=== PATIENT | female | born 1995 | race Caucasian/White ===

== ENCOUNTER 2017-11-02 01:09 | Emergency (ER) | payer BC ==
[~2017-11-02] VITALS: Ht 165.1 cm; Wt 59.5 kg
[2017-11-02 01:14] VITALS: TEMP 36.7; Ht 165.1 cm; Wt 59.5 kg
[2017-11-02] MEDS ORDERED: BCPILLS PO (01:41)
[2017-11-02] MEDS ORDERED: FLUO20CA35 PO (01:41)
[2017-11-02] MEDS ORDERED: ONDANSETRON INJ 2 MG/ML 2 ML VIAL IV STA (02:10)
[2017-11-02] MEDS ORDERED: SODIUM CHLORIDE 0.9% 1000ML 1,000 ML IV ONE (02:15)
[2017-11-02] MEDS ORDERED: OPTIRAY 320 IV PRN (02:15)
[2017-11-02 02:24] LABS: BASO % 0.1 %; BASO ABS # 0.01 K/uL (0-0.2); EOS % 8.1 %; EOS ABS # 0.58 K/uL (0-0.5); HEMATOCRIT 37.7 % (37-47); HEMOGLOBIN 12.9 g/dL (12.0-16.0); IG# 0.01 K/uL (0.00-0.02); LYMPH % 39.6 %; LYMPH ABS # 2.82 K/uL (1.2-3.4); MEAN CELL VOLUME 90.4 fL (80-100); MEAN CORPUSCULAR HEMOGLOBIN 30.9 pg (25-34); MEAN CORPUSCULAR HGB CONC 34.2 g/dl (32-36); MEAN PLATELET VOLUME 10.7 fL (7.4-10.4); MONO % 9.4 %; MONO ABS # 0.67 K/uL (0.11-0.59); NEUT % 42.7 %; NEUT ABS # 3.04 K/uL (1.4-6.5); PLATELET COUNT 249 K/uL (130-400); RED CELL DISTRIBUTION WIDTH SD 42.7 fL (36.4-46.3); WHITE BLOOD COUNT 7.13 K/uL (4.8-10.8)
[2017-11-02 02:43] LABS: ALBUMIN 3.5 gm/dl (3.4-5.0); CALCIUM 9.1 mg/dl (8.5-10.1); CREATININE 0.93 mg/dl (0.60-1.20); POTASSIUM 3.8 mmol/L (3.5-5.1)
[2017-11-02 02:46] LABS: TOTAL PROTEIN 6.9 gm/dl (6.4-8.2)
[2017-11-02 03:32] VITALS: BP 120/82
[2017-11-02 05:47] VITALS: PULSE 72; O2SAT 99
--- NOTE | 2017-11-02 06:35 | DIAGNOSTIC IMAGING REPORT ---
ABD/PELVIS IV AND ORAL CONT CT DOSE: 266.65 mGy.cm HISTORY: Pain low abd pain TECHNIQUE: Multiaxial CT images of the abdomen and pelvis were performed following the use of intravenous and oral contrast. A dose lowering technique was utilized adhering to the principles of ALARA. COMPARISON STUDY: None. FINDINGS: The lung bases are clear. The liver, spleen, gallbladder, pancreas, kidneys, and adrenal glands are within normal limits. No bowel wall thickening or obstruction. The pelvic organs are unremarkable. No suspicious lytic or blastic osseous lesions. IMPRESSION: No significant abnormality identified within the abdomen or pelvis. The above report was generated using voice recognition software. It may contain grammatical, syntax or spelling errors. Electronically signed by: Rodney Newsome M.D. 11/02/2017 6:34 AM Dictated Date/Time: 11/02/2017 6:32 AM
--- NOTE | 2017-11-02 07:31 | EMERGENCY ROOM VISIT NOTE ---
History First contact with patient: 01:20 Chief Complaint: ABDOMINAL PAIN Stated Complaint: SEVERE ABD PAIN Nursing Triage Summary: middle abdominal pain History of Present Illness The patient is a 22 year old female who presents to the Emergency Room with complaints of lower abdominal pain off and on for the past 2 weeks. The patient believes that her symptoms sometimes worsen with eating food. She describes the pain is very low in the abdomen without radiation. She ate food for dinner around 5 hours ago and had significantly worsening symptoms, rating her pain an 8/10. This did slowly improve to a 5/10 where she is now. The patient has been using Gas-X and Prilosec for the past 6 days without notable improvement of symptoms. She is sexually active and denies chance of as she is on control. Patient has never had abdominal surgery. No fevers , chills, chest pain, chest tightness, shortness of breath, upper abdominal pain , nausea, or vomiting. She considers herself otherwise usually healthy. Review of Systems More than 10 systems were reviewed and otherwise negative with the exception of history of present illness. Past Medical/Surgical History No chronic medical disease Family History No pertinent family history Social History Smoking Status: Never Smoker Occupation Status: [employer] Current/Historical Medications Scheduled Control Pills ( Control Pills), 1 TAB PO DAILY Fluoxetine (Prozac), 20 MG PO DAILY Physical Exam Vital Signs Date Time Temp Pulse Resp B/P (MAP) Pulse Ox O2 Delivery O2 Flow Rate FiO2 11/02/17 05:47 72 17 99 11/02/17 03:32 71 17 120/82 98 Room Air 11/02/17 01:14 36.7 102 18 131/87 98 Room Air Physical Exam VITALS: Vitals are noted on the nurse's note and reviewed by myself. Vital signs stable. GENERAL: Well-developed, well-nourished, white female, who is in no acute distress and resting comfortably. Patient is cooperative with the examination. HEAD: Normocephalic atraumatic. EARS: External ear normal. External auditory canals clear, tympanic membranes pearly martinez without erythema or effusion bilaterally. EYES: Pupils equal round and reactive to light and accommodation. Conjunctivae without injection, sclerae without icterus. Extraocular movements intact. NOSE: Patent, turbinates without inflammation or discharge. MOUTH: Mucous membranes moist. Tonsils are not enlarged. Pharynx without erythema, blood, or exudate. Uvula midline. Airway patent. NECK: Supple without nuchal rigidity. No lymphadenopathy. No thyromegaly. Cervical spine is nontender. HEART: Regular rate and rhythm without murmurs gallops or rubs. LUNGS: Clear to auscultation bilaterally without wheezes, rales or rhonchi. No retractions or accessory muscle use. ABDOMEN: Positive normal bowel sounds x 4. Soft with mild tenderness in the lower abdomen. No distinct point tenderness. No CVA tenderness. : Pelvic examination was performed by Pari female [employer] student under my direct supervision. Normal-appearing external female genitalia without rash or lesion. Physiologic white material is noted within the vaginal vault which is not erythematous. Cervix was identified without lesion. Cervix is nonfriable. Culture swabs were obtained. No obvious purulence appreciated. No cervical motion tenderness. MUSCULOSKELETAL: No muscle atrophy, erythema, or edema noted. Full range of motion in all extremities. No tenderness to palpation. Normal gait. Strength 5/5 throughout. NEURO: Patient was alert and oriented to person place and time. CN II through XII grossly intact. No focal neurological deficits. Deep tendon reflexes 2+ throughout. SKIN: The skin was without rashes, erythema, edema, or bruising. Capillary refill less than 2 seconds. Medical Decision & Procedures ER Provider Diagnostic Interpretation: ABD/PELVIS IV AND ORAL CONT CT DOSE: 266.65 mGy.cm HISTORY: Pain low abd pain TECHNIQUE: Multiaxial CT images of the abdomen and pelvis were performed following the use of intravenous and oral contrast. A dose lowering technique was utilized adhering to the principles of ALARA. COMPARISON STUDY: None. FINDINGS: The lung bases are clear. The liver, spleen, gallbladder, pancreas, kidneys, and adrenal glands are within normal limits. No bowel wall thickening or obstruction. The pelvic organs are unremarkable. No suspicious lytic or blastic osseous lesions. IMPRESSION: No significant abnormality identified within the abdomen or pelvis. Laboratory Results 11/02/17 01:45 Red Blood Count 4.17, Mean Corpuscular Volume 90.4, Mean Corpuscular Hemoglobin 30.9, Mean Corpuscular Hemoglobin Concent 34.2, Mean Platelet Volume 10.7, Neutrophils (%) (Auto) 42.7, Lymphocytes (%) (Auto) 39.6, Monocytes (%) (Auto) 9.4, Eosinophils (%) (Auto) 8.1, Basophils (%) (Auto) 0.1, Neutrophils # (Auto) 3.04, Lymphocytes # (Auto) 2.82, Monocytes # (Auto) 0.67, Eosinophils # (Auto) 0.58, Basophils # (Auto) 0.01 11/02/17 01:45 Test 11/02/17 01:40 11/02/17 01:45 11/02/17 02:30 Urine Color YELLOW Urine Appearance CLEAR (CLEAR) Urine pH 6.0 (4.5-7.5) Urine Specific [place] 1.023 (1.000-1.030) Urine Protein NEG (NEG) Urine Glucose (UA) NEG (NEG) Urine Ketones NEG (NEG) Urine Occult Blood NEG (NEG) Urine Nitrite NEG (NEG) Urine Bilirubin NEG (NEG) Urine Urobilinogen NEG (NEG) Urine Leukocyte Esterase MODERATE (NEG) Urine WBC (Auto) 10-30 /hpf (0-5) Urine RBC (Auto) 0-4 /hpf (0-4) Urine Hyaline Casts (Auto) 1-5 /lpf (0-5) Urine Epithelial Cells (Auto) >30 /lpf (0-5) Urine Bacteria (Auto) 1+ (NEG) Urine Test NEG (NEG) White Blood Count 7.13 K/uL (4.8-10.8) Red Blood Count 4.17 M/uL (4.2-5.4) Hemoglobin 12.9 g/dL (12.0-16.0) Hematocrit 37.7 % (37-47) Mean Corpuscular Volume 90.4 fL (80-100) Mean Corpuscular Hemoglobin 30.9 pg (25-34) Mean Corpuscular Hemoglobin Concent 34.2 g/dl (32-36) Platelet Count 249 K/uL (130-400) Mean Platelet Volume 10.7 fL (7.4-10.4) Neutrophils (%) (Auto) 42.7 % Lymphocytes (%) (Auto) 39.6 % Monocytes (%) (Auto) 9.4 % Eosinophils (%) (Auto) 8.1 % Basophils (%) (Auto) 0.1 % Neutrophils # (Auto) 3.04 K/uL (1.4-6.5) Lymphocytes # (Auto) 2.82 K/uL (1.2-3.4) Monocytes # (Auto) 0.67 K/uL (0.11-0.59) Eosinophils # (Auto) 0.58 K/uL (0-0.5) Basophils # (Auto) 0.01 K/uL (0-0.2) RDW Standard Deviation 42.7 fL (36.4-46.3) RDW Coefficient of Variation 13.0 % (11.5-14.5) Immature Granulocyte % (Auto) 0.1 % Immature Granulocyte # (Auto) 0.01 K/uL (0.00-0.02) Anion Gap 5.0 mmol/L (3-11) Est Creatinine Clear Calc Drug Dose 85.4 ml/min Estimated GFR () 101.1 Estimated GFR (Non- 87.2 BUN/Creatinine Ratio 17.5 (10-20) Calcium Level 9.1 mg/dl (8.5-10.1) Total Bilirubin 0.3 mg/dl (0.2-1) Aspartate Amino Transf (AST/SGOT) 22 U/L (15-37) Alanine Aminotransferase (ALT/SGPT) 28 U/L (12-78) Alkaline Phosphatase 64 U/L (45-117) Total Protein 6.9 gm/dl (6.4-8.2) Albumin 3.5 gm/dl (3.4-5.0) Globulin 3.4 gm/dl (2.5-4.0) Albumin/Globulin Ratio 1.0 (0.9-2) Lipase 243 U/L (73-393) Date/Time Source Procedure Growth Status 11/02/17 02:30 Cervix Swab Trichomonas Preparation - Final Complete Medications Administered Medications (Trade) Dose Ordered Sig/Grey Route Start Time Stop Time Status Last Admin Dose Admin Ondansetron HCl (Zofran Inj) 4 mg NOW STAT IV 11/02/17 02:10 11/02/17 02:12 DC 11/02/17 02:25 4 MG Sodium Chloride 1,000 ml @ 999 mls/hr Q1H1M ONCE IV 11/02/17 02:15 11/02/17 03:15 DC 11/02/17 02:25 999 MLS/HR ED Course Physical exam and history were performed. Nursing notes, EMR, and Medication List were personally reviewed. Patient appears to have low abdominal pain off and on for the past 2 weeks. IV access was established and labs were obtained. The patient was hydrated and medicated as above. Because she does not have significant exam findings other than some reproducible tenderness in the lower abdomen I did elect perform a CT scan of the abdomen and pelvis with IV and oral contrast. The patient's blood work is as above and was reviewed. She does not have a significantly elevated white blood cell count, gross anemia, bandemia, or significant electrolyte imbalance. Lipase and transaminases are not diagnostic. Urine is without evidence of infection. She is not . CT scan was reviewed by myself and radiology as showing no significant acute process. Vaginal cultures and swabs are pending at the time of this dictation. The patient and I had a lengthy discussion regarding her symptoms. She certainly could have irritable bowel, gastroparesis, constipation, or several other processes causing her symptoms. She does not appear to have an acute surgical abdomen on repeat examination. She does seem well for discharge home. The patient indicated that she will likely follow up with gastroenterology upon returning home after the end of the semester. I feel this is reasonable and is in her best interest. The patient will otherwise be treated conservatively with [id number] medications. She was asked to return to the ER with any new, worsening, or concerning symptoms. The chart was completed utilizing [employer] Speech Voice Recognition Software. Grammatical errors, random word insertions, pronoun errors, and incomplete sentences are an occasional consequence of this system due to software limitations, ambient noise, and hardware issues. Any formal questions or concerns about the content, text, or information contained within the body of this dictation should be directly addressed to the provider for clarification. . Medical Decision Differential diagnosis: Etiologies such as appendicitis, diverticulitis, PUD, biliary pathology, UTI, pancreatitis, obstruction, mesenteric ischemia, aortic pathology, infections, inflammatory bowel disease, renal colic, as well as others were entertained. Impression Primary Impression: Abdominal pain Departure Information Dispostion Home / Self-Care Condition GOOD Forms HOME CARE DOCUMENTATION FORM, IMPORTANT VISIT INFORMATION Patient Instructions [facility] Additional Instructions You were seen and evaluated today on an emergency basis only. This is not a substitute for, or an effort to provide, complete comprehensive medical care. It is not possible to recognize and treat all injuries or illnesses in a single emergency department visit. For this reason it is recommended that you followup with your primary care physician or client support consultant back home for recheck of your condition. Drink plenty fluids and remain well-hydrated. Continue Prilosec [id number] You are welcome to return to the emergency department anytime with new, worsening, or concerning symptoms.
== END 2017-11-02 05:52 | disposition home or self-care (01) ==
LOC: C.EDB 01:11 → C.EDA 05:52
DX: R10.30 Lower abdominal pain, unspecified (principal); Z79.3 Long term (current) use of hormonal contraceptives; Z79.899 Other long term (current) drug therapy